=== PATIENT | female | born 1955 | race Caucasian/White ===

== ENCOUNTER 2020-09-18 21:12 | Inpatient (IN) ==
[2020-09-18] MEDS ORDERED: PNEUMOCOCCAL VACCINE (13 VALENT) 0.5 ML SYRINGE IM ONE (22:58)
[2020-09-18] MEDS ORDERED: SODIUM CHLORIDE 0.9% IV PRN (23:13)
[2020-09-18] MEDS ORDERED: SODIUM BICARB INJ 100 MEQ in STERILE WATER INJ 400 ML IV PRN (23:13)
[2020-09-18] MEDS ORDERED: MAGNESIUM SULF RIDER 4 GM in PREMIX 1 EACH IV PRN (23:13)
[2020-09-18] MEDS ORDERED: MAGNESIUM SULF RIDER 2 GM in PREMIX 1 EACH IV PRN (23:13)
[2020-09-18] MEDS ORDERED: DEXTROSE 50% 25 GM/50 ML VIAL IV PRN ×2 (23:13)
[2020-09-18] MEDS ORDERED: SODIUM PHOSPHATE IV PRN (23:13)
[2020-09-18] MEDS ORDERED: PANTOPRAZOLE INJ 80 MG in SODIUM CHLORIDE 0.9% 100 ML IV ONE (23:15)
[2020-09-18] MEDS ORDERED: INSULIN REGULAR DRIP 100 ML IV SCH (23:30)
[2020-09-18] MEDS ORDERED: OCTREOTIDE 500 MCG in SODIUM CHLORIDE 0.9% 99 ML IV SCH (23:30)
[2020-09-18 23:46] LABS: ABG Base Excess -21.6 MMOL/L (-2.5-2.5); ABG HCO3 9.6 MMOL/L (20-26); ABG Oxygen Saturation 98.1 % (95-100); ABG TCO2 5.8 MMOL/L (23-27); Allen Test Positive; Pt O2 Delivery Device Room Air
[2020-09-18 23:48] LABS: ABG PH 7.162 (7.35-7.45)
[2020-09-18 23:57] LABS: Bilirubin,Urine Negative (Negative); Blood, Urine Small mg/dL (Negative); Glucose,Urine (UA) >=500 mg/dL (Negative); Hyaline Casts,Urine 3 /LPF (0-3); Ketones,Urine 80 mg/dL (Negative); Mucus,Urine Occasional /LPF (Occasional); Nitrite,Urine Negative (Negative); Protein,Urine 30 MG/DL; RBC,Urine 4 /HPF (0-4); Urine Appearance CLEAR (Clear); Urine Color Yellow (Yellow); Urine Specific Gravity 1.029 (1.001-1.035); Urine Urobilinogen < 2.0 EU/DL (0.2-1.0); WBC,Urine <1 /HPF (0-6)
[2020-09-19] MEDS ORDERED: PANTOPRAZOLE INJ 200 MG in SODIUM CHLORIDE 0.9% 250 ML IV SCH
[2020-09-19 00:39] LABS: Basophils # 0.1 10*3/uL (0.0-0.2); Basophils % 0.2 % (0.0-0.8); Hematocrit 43.3 VOL% (35.7-47.0); Hemoglobin 13.8 GM/DL (12.0-16.0); Immature Granulocytes % 2.5 %; Immature Granulocytes Absolute 0.59 #; Lymphocytes # 2.4 10*3/uL (1.4-4.0); Lymphocytes % 10.1 % (21.3-54.2); Mean Corpuscular HGB Conc 31.9 GM/DL (32-36); Mean Corpuscular Volume 93.1 FL (87-102); Monocytes % 8.9 % (1.7-12.7); Neutrophils % 78.3 % (38.7-73.9); Platelet Count 312 T/CUMM (130-400); Red Blood Count 4.65 MC/CUMM (3.8-5.5); Red Cell Distribution Width 13.3 % (9.3-17.3); White Blood Count 23.8 T/CUMM (4-12)
[2020-09-19 00:41] LABS: Albumin 3.8 G/DL (3.4-5.0); Bilirubin,Total 1.3 MG/DL (0.2-1.0); Calcium 8.6 MG/DL (8.5-10.1); Osmolality,Calculated 293.1 MOS/KG (273-304); Total Protein 6.9 G/DL (6.4-8.2)
[2020-09-19 01:01] LABS: INR 1.1; PT Patient Result 11.4 SECS (9.8-11.9); Partial Thromboplastin Time 33.5 SECS (23.9-33.8)
[2020-09-19] MEDS: SODIUM CHLOR 0.45% KCL 20 MEQ 20 MEQ/1,000 ML BAG IV SCH ×2 (01:05→05:11)
[2020-09-19] MEDS ORDERED: SODIUM BICARBONATE 50 MEQ/50 ML VIAL IV ONE (02:11)
[2020-09-19 02:24] LABS: Band Neutrophils 1 % (0-10); Lymphocytes 12 % (20-55); Segmented Neutrophils 80 % (50-85)
[2020-09-19 02:25] LABS: Platelet Estimate Normal; Reactive Lymphocytes 1+; Total Cells Counted 100
[2020-09-19 02:48] LABS: Albumin 3.7 G/DL (3.4-5.0); Bilirubin,Direct 0.72 MG/DL (0.0-0.20); Bilirubin,Indirect 0.4 MG/DL (0.0-1.0); Bilirubin,Total 1.1 MG/DL (0.2-1.0); Total Protein 7.3 G/DL (6.4-8.2)
[2020-09-19] MEDS ORDERED: PIPERACILLIN/TAZOBACTAM 3,375 MG in SODIUM CHLORIDE 0.9% 100 ML IV SCH (03:00)
[2020-09-19] MEDS: DEXT 5% NACL 0.45% KCL 20 MEQ 20 MEQ/1,000 ML BAG IV SCH ×2 (03:09→07:34)
[2020-09-19 03:26] LABS: Hepatitis B Surface Ag Quant < 0.10 Index; Hepatitis B Surface Ag Result Non-Reactive (NonReactive); Hepatitis C Virus Ab Quant 0.06 Index; Hepatitis C Virus Ab Result Non-Reactive (NonReactive)
[2020-09-19 04:15] LABS: Basophils % 0.1 % (0.0-0.8); Eosinophils % 0.1 % (0.00-10.9); Hematocrit 35.8 VOL% (35.7-47.0); Hemoglobin 12.2 GM/DL (12.0-16.0); Immature Granulocytes % 0.7 %; Immature Granulocytes Absolute 0.11 #; Lymphocytes # 1.8 10*3/uL (1.4-4.0); Lymphocytes % 11.2 % (21.3-54.2); Mean Corpuscular HGB Conc 34.1 GM/DL (32-36); Mean Corpuscular Volume 88.6 FL (87-102); Mean Platelet Volume 11.9 FL (9.6-12.0); Monocytes % 7.2 % (1.7-12.7); Neutrophils % 80.7 % (38.7-73.9); Platelet Count 249 T/CUMM (130-400); Red Blood Count 4.04 MC/CUMM (3.8-5.5); Red Cell Distribution Width 13.3 % (9.3-17.3); White Blood Count 15.8 T/CUMM (4-12)
[2020-09-19 04:30] LABS: Calcium 7.9 MG/DL (8.5-10.1); Osmolality,Calculated 297.3 MOS/KG (273-304)
[2020-09-19 05:16] LABS: Calcium 8.5 MG/DL (8.5-10.1); Osmolality,Calculated 291.7 MOS/KG (273-304); Potassium 3.7 MMOL/L (3.5-5.1)
[2020-09-19] MEDS: POTASSIUM CHLORIDE RIDER 10 MEQ in PREMIX 1 EACH IV PRN ×2 (05:59→08:00)
[2020-09-19] MEDS: SODIUM CHLORIDE 0.45% 1,000 ML IV SCH ×3 (08:17→20:43)
[2020-09-19] MEDS: PANTOPRAZOLE 40 MG VIAL IV SCH ×2 (09:59→20:43)
[2020-09-19] MEDS: INSULIN GLARGINE 100 UNIT/ML SUBCUT SCH (10:16)
[2020-09-19 10:25] LABS: Calcium 7.4 MG/DL (8.5-10.1)
[2020-09-19 10:28] LABS: % Iron Saturation 10.4 % (18-50); Potassium 6.2 MMOL/L (3.5-5.1)
[2020-09-19] MEDS ORDERED: POTASSIUM PHOSPHATE 20 MMOL in SODIUM CHLORIDE 0.9% 100 ML IV ONE (10:30)
[2020-09-19 11:01] LABS: Calcium 8.4 MG/DL (8.5-10.1); Potassium 3.9 MMOL/L (3.5-5.1)
[2020-09-19] MEDS: INSULIN LISPRO 100 UNIT/ML SUBCUT SCH ×3 (11:04→20:40)
[2020-09-20] MEDS: SODIUM CHLORIDE 0.45% 1,000 ML IV SCH (05:18)
[2020-09-20 05:56] LABS: Basophils # 0.1 10*3/uL (0.0-0.2); Basophils % 0.5 % (0.0-0.8); Eosinophils # 0.5 10*3/uL (0.0-0.87); Eosinophils % 5.3 % (0.00-10.9); Hematocrit 34.3 VOL% (35.7-47.0); Hemoglobin 11.7 GM/DL (12.0-16.0); Immature Granulocytes % 0.3 %; Immature Granulocytes Absolute 0.03 #; Lymphocytes # 1.6 10*3/uL (1.4-4.0); Lymphocytes % 15.4 % (21.3-54.2); Mean Corpuscular HGB Conc 34.1 GM/DL (32-36); Mean Corpuscular Volume 86.4 FL (87-102); Mean Platelet Volume 11.3 FL (9.6-12.0); Monocytes % 11.1 % (1.7-12.7); Neutrophils % 67.4 % (38.7-73.9); Platelet Count 196 T/CUMM (130-400); Red Blood Count 3.97 MC/CUMM (3.8-5.5); Red Cell Distribution Width 13.4 % (9.3-17.3); White Blood Count 10.1 T/CUMM (4-12)
[2020-09-20 06:29] LABS: Albumin 2.9 G/DL (3.4-5.0); Bilirubin,Total 0.6 MG/DL (0.2-1.0); Calcium 7.9 MG/DL (8.5-10.1); Potassium 3.7 MMOL/L (3.5-5.1); Total Protein 5.1 G/DL (6.4-8.2)
[2020-09-20 06:30] LABS: Risk Ratio 2.39; VLDL CHOLESTEROL 18.6 MG/DL
[2020-09-20] MEDS ORDERED: LIDOCAINE 2% 5 ML VIAL ONE (06:35)
[2020-09-20] MEDS ORDERED: propofoL 200 MG/20 ML VIAL IV ONE (06:35)
[2020-09-20] MEDS ORDERED: LACTATED RINGERS 1,000 ML IV SCH (07:00)
[2020-09-20 08:04] VITALS: BP 142/68
[2020-09-20] MEDS: INSULIN LISPRO 100 UNIT/ML SUBCUT SCH ×2 (08:36→11:17)
[2020-09-20] MEDS: PANTOPRAZOLE 40 MG VIAL IV SCH (09:07)
[2020-09-20] MEDS: INSULIN GLARGINE 100 UNIT/ML SUBCUT SCH (09:07)
[2020-09-20 17:06] LABS: Antinuclear Ab, S < 0.1 U
[2020-09-22 15:26] LABS: Alpha-1-Antitrypsin, Serum 116 mg/dL (100 - 190)
== END 2020-09-20 15:33 | disposition home or self-care (01) | DRG 380 ==
LOC: N.CC 22:42 → SUATTDRO 22:42
PROVIDERS: ADMIT Internal Medicine; ATTEND Internal Medicine

== ENCOUNTER 2020-10-10 05:36 | Inpatient (IN) ==
[2020-10-10] MEDS ORDERED: LACTULOSE 20 GM/30 ML UDCUP PO PRN (09:00)
[2020-10-10] MEDS ORDERED: MORPHINE 4 MG/1 ML VIAL IV PRN (09:00)
[2020-10-10] MEDS ORDERED: ACETAMINOPHEN 325 MG TABLET PO PRN (09:00)
[2020-10-10] MEDS ORDERED: GLUCAGON 1 MG VIAL IM PRN (09:00)
[2020-10-10] MEDS ORDERED: DEXTROSE 50% 25 GM/50 ML VIAL IV PRN (09:00)
[2020-10-10] MEDS ORDERED: SODIUM CHLORIDE 0.9% 1,000 ML IV SCH (09:30)
[2020-10-10] MEDS ORDERED: PANTOPRAZOLE 40 MG VIAL IV SCH (10:00)
[2020-10-10 10:20] LABS: Basophils # 0.1 10*3/uL (0.0-0.2); Basophils % 0.6 % (0.0-0.8); Hemoglobin 13.5 GM/DL (12.0-16.0); Immature Granulocytes % 1.9 %; Immature Granulocytes Absolute 0.21 #; Lymphocytes # 0.9 10*3/uL (1.4-4.0); Lymphocytes % 8.2 % (21.3-54.2); Mean Corpuscular HGB Conc 30.7 GM/DL (32-36); Mean Corpuscular Volume 95.2 FL (87-102); Mean Platelet Volume 11.9 FL (9.6-12.0); Monocytes % 3.2 % (1.7-12.7); Neutrophils % 86.1 % (38.7-73.9); Platelet Count 319 T/CUMM (130-400); Red Blood Count 4.62 MC/CUMM (3.8-5.5); Red Cell Distribution Width 14.3 % (9.3-17.3); White Blood Count 11.1 T/CUMM (4-12)
[2020-10-10 10:47] LABS: Bilirubin,Total 5.8 MG/DL (0.2-1.0); Osmolality,Calculated 276.7 MOS/KG (273-304); Potassium 4.1 MMOL/L (3.5-5.1); Total Protein 8.6 G/DL (6.4-8.2)
[2020-10-10] MEDS: ONDANSETRON 4 MG/2 ML VIAL IV PRN (11:06)
[2020-10-10] MEDS ORDERED: SODIUM BICARB INJ 100 MEQ in SODIUM CHLORIDE 0.9% 1,000 ML IV SCH (11:16)
[2020-10-10] MEDS: INSULIN LISPRO 100 UNIT/ML SUBCUT SCH ×3 (11:32→22:48)
[2020-10-10 11:34] LABS: Hepatitis B Core IgM Quant 0.05 Index; Hepatitis B Surface Ag Quant < 0.10 Index; Hepatitis B Surface Ag Result Non-Reactive (NonReactive); Hepatitis C Virus Ab Quant 0.04 Index; Hepatitis C Virus Ab Result Non-Reactive (NonReactive)
[2020-10-10] MEDS ORDERED: hydrALAZINE 20 MG/1 ML VIAL IV PRN (11:50)
[2020-10-10] MEDS ORDERED: SODIUM BICARB INJ 100 MEQ in DEXTROSE 5% 1,000 ML IV SCH (12:15)
[2020-10-10] MEDS: CIPROFLOXACIN INJ 400 MG/200 ML PREMIX IV SCH ×2 (12:16→23:32)
[2020-10-10 13:29] LABS: ABG Base Excess -16.6 MMOL/L (-2.5-2.5); ABG HCO3 12.1 MMOL/L (20-26); ABG Oxygen Saturation 97.5 % (95-100); ABG PCO2 24.4 MM HG (35-48); ABG PH 7.221 (7.35-7.45); ABG TCO2 9.1 MMOL/L (23-27)
[2020-10-10] MEDS: metroNIDAZOLE INJ 500 MG in PREMIX 1 EACH IV SCH ×2 (14:07→22:03)
[2020-10-10] MEDS ORDERED: KETOROLAC 15 MG/1 ML VIAL IV PRN (14:09)
[2020-10-10] MEDS ORDERED: HYDROmorphone 2 MG/1 ML VIAL IV PRN (14:09)
[2020-10-10] MEDS: LACTATED RINGERS 1,000 ML IV SCH ×2 (15:13→20:57)
[2020-10-10] MEDS: PANTOPRAZOLE 40 MG VIAL IV SCH (22:04)
[2020-10-11] MEDS: metroNIDAZOLE INJ 500 MG in PREMIX 1 EACH IV SCH ×3 (04:42→22:13)
[2020-10-11 05:17] LABS: Basophils % 0.4 % (0.0-0.8); Eosinophils # 0.2 10*3/uL (0.0-0.87); Eosinophils % 2.8 % (0.00-10.9); Immature Granulocytes % 0.7 %; Immature Granulocytes Absolute 0.05 #; Lymphocytes # 1.5 10*3/uL (1.4-4.0); Lymphocytes % 21.4 % (21.3-54.2); Mean Corpuscular HGB Conc 31.4 GM/DL (32-36); Mean Corpuscular Volume 92.8 FL (87-102); Mean Platelet Volume 11.2 FL (9.6-12.0); Monocytes % 10.9 % (1.7-12.7); Neutrophils % 63.8 % (38.7-73.9); Platelet Count 293 T/CUMM (130-400); Red Blood Count 3.77 MC/CUMM (3.8-5.5); Red Cell Distribution Width 14.3 % (9.3-17.3); White Blood Count 6.8 T/CUMM (4-12)
[2020-10-11 05:38] LABS: Risk Ratio 2.31; VLDL CHOLESTEROL 17.4 MG/DL
[2020-10-11 06:17] LABS: Bilirubin,Total 1.3 MG/DL (0.2-1.0); Calcium 8.5 MG/DL (8.5-10.1); Osmolality,Calculated 276.5 MOS/KG (273-304); Total Protein 5.6 G/DL (6.4-8.2)
[2020-10-11] MEDS: LACTATED RINGERS 1,000 ML IV SCH ×4 (08:01→14:46)
[2020-10-11] MEDS: ATORVASTATIN 40 MG TABLET PO SCH (09:09)
[2020-10-11] MEDS: ASPIRIN CHEW 81 MG TABLET PO SCH (09:09)
[2020-10-11] MEDS: INSULIN LISPRO 100 UNIT/ML SUBCUT SCH ×4 (09:28→22:23)
[2020-10-11] MEDS: PANTOPRAZOLE 40 MG VIAL IV SCH (10:14)
[2020-10-11] MEDS: CIPROFLOXACIN INJ 400 MG/200 ML PREMIX IV SCH (11:45)
[2020-10-12] MEDS: CIPROFLOXACIN INJ 400 MG/200 ML PREMIX IV SCH ×2 (00:55→14:37)
[2020-10-12] MEDS: PANTOPRAZOLE 40 MG VIAL IV SCH ×3 (00:56→21:24)
[2020-10-12] MEDS: LACTATED RINGERS 1,000 ML IV SCH ×4 (00:57→14:20)
[2020-10-12] MEDS: metroNIDAZOLE INJ 500 MG in PREMIX 1 EACH IV SCH ×3 (05:41→21:26)
[2020-10-12 06:39] LABS: Basophils % 0.7 % (0.0-0.8); Eosinophils # 0.3 10*3/uL (0.0-0.87); Eosinophils % 7.2 % (0.00-10.9); Hematocrit 33.3 VOL% (35.7-47.0); Immature Granulocytes % 0.2 %; Immature Granulocytes Absolute 0.01 #; Lymphocytes # 1.4 10*3/uL (1.4-4.0); Lymphocytes % 30.4 % (21.3-54.2); Mean Corpuscular Volume 89.8 FL (87-102); Mean Platelet Volume 11.5 FL (9.6-12.0); Monocytes % 12.1 % (1.7-12.7); Neutrophils % 49.4 % (38.7-73.9); Platelet Count 249 T/CUMM (130-400); Red Blood Count 3.71 MC/CUMM (3.8-5.5); Red Cell Distribution Width 14.6 % (9.3-17.3); White Blood Count 4.6 T/CUMM (4-12)
[2020-10-12 06:45] LABS: INR 1.1; PT Patient Result 11.9 SECS (9.8-11.9)
[2020-10-12] MEDS ORDERED: INDOMETHACIN SUPP 50 MG SUPP RECTAL ONE ×2 (06:56→08:00)
[2020-10-12 06:57] LABS: Albumin 2.7 G/DL (3.4-5.0); Bilirubin,Total 1.2 MG/DL (0.2-1.0); Calcium 8.8 MG/DL (8.5-10.1); Osmolality,Calculated 277.4 MOS/KG (273-304); Potassium 3.5 MMOL/L (3.5-5.1); Total Protein 5.9 G/DL (6.4-8.2)
[2020-10-12] MEDS: INSULIN LISPRO 100 UNIT/ML SUBCUT SCH ×4 (08:00→22:21)
[2020-10-12] MEDS: ASPIRIN CHEW 81 MG TABLET PO SCH (10:59)
[2020-10-12] MEDS: ATORVASTATIN 40 MG TABLET PO SCH (11:00)
[2020-10-12] MEDS ORDERED: fentaNYL 100 MCG/2 ML VIAL ONE (11:30)
[2020-10-12] MEDS ORDERED: NEOSTIGMINE 10 MG/10 ML VIAL ONE (12:55)
[2020-10-12] MEDS ORDERED: DEXAMETHASONE 4 MG/1 ML VIAL ONE (12:55)
[2020-10-12] MEDS ORDERED: GLYCOPYRROLATE 0.4 MG/2 ML VIAL ONE (12:55)
[2020-10-12] MEDS ORDERED: propofoL 200 MG/20 ML VIAL IV ONE (12:55)
[2020-10-12] MEDS ORDERED: ROCURONIUM 50 MG/5 ML VIAL IV ONE (12:55)
[2020-10-12] MEDS ORDERED: LIDOCAINE 2% 5 ML VIAL ONE (12:55)
[2020-10-12] MEDS ORDERED: SEVOFLURANE 1 UNIT/15 MINUTE INH ONE (12:55)
[2020-10-13] MEDS: CIPROFLOXACIN INJ 400 MG/200 ML PREMIX IV SCH ×2 (00:39→12:30)
[2020-10-13] MEDS: LACTATED RINGERS 1,000 ML IV SCH ×7 (00:40→22:43)
[2020-10-13] MEDS: metroNIDAZOLE INJ 500 MG in PREMIX 1 EACH IV SCH ×3 (05:47→20:18)
[2020-10-13 06:35] LABS: Basophils % 0.4 % (0.0-0.8); Eosinophils % 0.8 % (0.00-10.9); Hematocrit 32.6 VOL% (35.7-47.0); Hemoglobin 10.8 GM/DL (12.0-16.0); Immature Granulocytes % 0.2 %; Immature Granulocytes Absolute 0.01 #; Lymphocytes # 1.4 10*3/uL (1.4-4.0); Lymphocytes % 28.1 % (21.3-54.2); Mean Corpuscular HGB Conc 33.1 GM/DL (32-36); Mean Corpuscular Volume 90.1 FL (87-102); Mean Platelet Volume 11.6 FL (9.6-12.0); Monocytes % 13.4 % (1.7-12.7); Neutrophils % 57.1 % (38.7-73.9); Platelet Count 234 T/CUMM (130-400); Red Blood Count 3.62 MC/CUMM (3.8-5.5); Red Cell Distribution Width 14.7 % (9.3-17.3)
[2020-10-13 07:05] LABS: Albumin 2.8 G/DL (3.4-5.0); Bilirubin,Total 0.6 MG/DL (0.2-1.0); Calcium 8.5 MG/DL (8.5-10.1); Osmolality,Calculated 280.4 MOS/KG (273-304); Potassium 3.2 MMOL/L (3.5-5.1); Total Protein 5.6 G/DL (6.4-8.2)
[2020-10-13] MEDS: INSULIN LISPRO 100 UNIT/ML SUBCUT SCH ×4 (07:18→21:15)
[2020-10-13] MEDS ORDERED: POTASSIUM CHLORIDE RIDER 10 MEQ in PREMIX 1 EACH IV PRN (07:23)
[2020-10-13] MEDS: ASPIRIN CHEW 81 MG TABLET PO SCH (08:07)
[2020-10-13] MEDS: ATORVASTATIN 40 MG TABLET PO SCH (08:07)
[2020-10-13] MEDS: PANTOPRAZOLE 40 MG VIAL IV SCH ×2 (08:36→20:17)
[2020-10-13] MEDS ORDERED: DIAZEPAM 5 MG TABLET PO ONE (09:53)
[2020-10-13] MEDS ORDERED: FAMOTIDINE 20 MG TABLET PO ONE (09:53)
[2020-10-13] MEDS ORDERED: ACETAMINOPHEN 500 MG TABLET PO ONE (09:54)
[2020-10-13] MEDS ORDERED: ALBUMIN 5% 12.5 GM/250 ML VIAL IV ONE ×2 (15:54→15:57)
[2020-10-13] MEDS ORDERED: MIDAZOLAM 2 MG/2 ML VIAL ONE (16:24)
[2020-10-13] MEDS ORDERED: fentaNYL 100 MCG/2 ML VIAL ONE (16:25)
[2020-10-13] MEDS ORDERED: ceFAZolin 1,000 MG VIAL ONE (16:36)
[2020-10-13] MEDS ORDERED: propofoL 200 MG/20 ML VIAL IV ONE (16:36)
[2020-10-13] MEDS ORDERED: ROCURONIUM 50 MG/5 ML VIAL IV ONE (16:36)
[2020-10-13] MEDS ORDERED: LIDOCAINE 2% 5 ML VIAL ONE (16:36)
[2020-10-13] MEDS ORDERED: ePHEDrine 50 MG/ML VIAL ONE (16:46)
[2020-10-13] MEDS ORDERED: LACTATED RINGERS 1,000 ML IV ONE (17:40)
[2020-10-13] MEDS ORDERED: ESMOLOL 100 MG/10 ML VIAL IV ONE (17:48)
[2020-10-13] MEDS ORDERED: SEVOFLURANE 1 UNIT/15 MINUTE INH ONE (17:52)
[2020-10-13] MEDS: HYDROmorphone 2 MG/1 ML VIAL IV PRN ×2 (19:40→22:51)
[2020-10-13] MEDS: ONDANSETRON 4 MG/2 ML VIAL IV PRN (19:41)
[2020-10-14] MEDS: CIPROFLOXACIN INJ 400 MG/200 ML PREMIX IV SCH ×2 (01:00→11:31)
[2020-10-14] MEDS: metroNIDAZOLE INJ 500 MG in PREMIX 1 EACH IV SCH ×2 (04:50→14:25)
[2020-10-14 05:23] LABS: Basophils % 0.1 % (0.0-0.8); Hematocrit 32.5 VOL% (35.7-47.0); Hemoglobin 10.2 GM/DL (12.0-16.0); Immature Granulocytes % 0.4 %; Immature Granulocytes Absolute 0.04 #; Lymphocytes # 0.9 10*3/uL (1.4-4.0); Mean Corpuscular HGB Conc 31.4 GM/DL (32-36); Mean Corpuscular Volume 94.2 FL (87-102); Mean Platelet Volume 11.7 FL (9.6-12.0); Monocytes % 7.9 % (1.7-12.7); Neutrophils % 81.6 % (38.7-73.9); Platelet Count 235 T/CUMM (130-400); Red Blood Count 3.45 MC/CUMM (3.8-5.5); Red Cell Distribution Width 14.8 % (9.3-17.3)
[2020-10-14] MEDS: LACTATED RINGERS 1,000 ML IV SCH ×4 (06:04→12:36)
[2020-10-14 06:07] LABS: Albumin 2.9 G/DL (3.4-5.0); Bilirubin,Total 0.8 MG/DL (0.2-1.0); Calcium 8.5 MG/DL (8.5-10.1); Osmolality,Calculated 287.1 MOS/KG (273-304); Potassium 4.3 MMOL/L (3.5-5.1); Total Protein 5.5 G/DL (6.4-8.2)
[2020-10-14] MEDS: INSULIN LISPRO 100 UNIT/ML SUBCUT SCH ×2 (08:31→11:47)
[2020-10-14] MEDS: ATORVASTATIN 40 MG TABLET PO SCH (10:14)
[2020-10-14] MEDS: ASPIRIN CHEW 81 MG TABLET PO SCH (10:14)
[2020-10-14] MEDS: PANTOPRAZOLE 40 MG VIAL IV SCH (10:16)
[2020-10-14 11:55] VITALS: BP 114/45
== END 2020-10-14 14:40 | disposition home or self-care (01) | DRG 418 ==
LOC: N.3E 06:43 → SUATTDRO 06:43
PROVIDERS: ADMIT Internal Medicine; ATTEND Internal Medicine
PROC: ERCPWSP (ICD-10-PCS; 2020-10-12 11:35)
PROC: LAPCHOL (2020-10-13 16:22)